=== PATIENT | female | born 1995 | race African-American/Black ===

== ENCOUNTER 2016-12-11 00:29 | Emergency (ER) | payer OTHER ==
[~2016-12-11] VITALS: Ht 170.2 cm; Wt 75.0 kg
[2016-12-11 00:37] VITALS: TEMP 37.2; Ht 170.2 cm; Wt 75.0 kg
--- NOTE | 2016-12-11 01:12 | DIAGNOSTIC IMAGING REPORT ---
LEFT ANKLE 3 VIEWS CLINICAL HISTORY: Left ankle injury. FINDINGS: 3 views of the left ankle are obtained. No prior studies are available for comparison at the time of dictation. The skeletal structures are well mineralized. There is a mildly distracted spiral fracture of the distal fibula. No additional fracture is seen. There is widening of the medial joint space which measures 5 mm. There is a joint effusion and significant soft tissue edema is noted around the ankle. IMPRESSION: 1. There is a minimally distracted spiral fracture through the distal fibula with associated joint effusion and soft tissue swelling. 2. No additional fracture is seen. There is widening of the medial joint space. Electronically signed by: Sean Nur M.D. 12/11/2016 1:11 AM Dictated Date/Time: 12/11/2016 1:09 AM
[2016-12-11] MEDS ORDERED: HYDR-5688 PO (01:28)
[2016-12-11] MEDS ORDERED: NORCO 5/325MG HOME PACK PO ONE (01:30)
[2016-12-11 01:52] VITALS: BP 128/80; PULSE 79; O2SAT 97
--- NOTE | 2016-12-11 06:55 | EMERGENCY ROOM VISIT NOTE ---
ED Visit Note First contact with patient: 00:54 CHIEF COMPLAINT: Ankle pain HISTORY OF PRESENT ILLNESS: This 21-year-old female patient presents to the emergency department after sustaining an injury to the left ankle and foot with a twisting, inversion motion after slipping on ice about 1 hour ago. The patient complains of pain along the outside of the ankle. The patient is without pain of the foot. The patient rates the pain as dull and 7/10. The patient is not able to bear weight on the foot. Constant pain, worse with movement, weight bearing, and the dependent position. No knee pain, the patient is able to move their toes. No numbness or weakness of the foot, no laceration. The patient has not had a previous fracture to this ankle. The patient has taken nothing for the pain. The patient denies any other injury. REVIEW OF SYSTEMS: A 6 system review of systems was completed with positives and pertinent negatives listed in the HPI. ALLERGIES: No known allergies MEDICATIONS: No chronic medications PMH: Otherwise healthy SOCIAL HISTORY: Student who lives locally PHYSICAL EXAM: Vital Signs: Reviewed Nurse's notes, vital signs stable. GENERAL : Female, no acute distress, but appears in pain, well-developed, well- nourished. MENTAL STATUS: Alert, oriented to person place and time, and cooperative. MUSCULOSKELETAL: The left ankle is swollen and tender over the lateral malleolus, but the skin is intact and there is no ligamentous instability. There is no fifth metatarsal tenderness. There is no tenderness over the rest of the foot. There is no calf or tibia/fibular tenderness. There is no visual deformity. The foot and toes are warm and well-perfused. Dorsalis pedis pulse 2+. Sensation to pain and light touch is intact. Capillary refill less than 2 seconds. LEFT ANKLE 3 VIEWS CLINICAL HISTORY: Left ankle injury. FINDINGS: 3 views of the left ankle are obtained. No prior studies are available for comparison at the time of dictation. The skeletal structures are well mineralized. There is a mildly distracted spiral fracture of the distal fibula. No additional fracture is seen. There is widening of the medial joint space which measures 5 mm. There is a joint effusion and significant soft tissue edema is noted around the ankle. IMPRESSION: 1. There is a minimally distracted spiral fracture through the distal fibula with associated joint effusion and soft tissue swelling. 2. No additional fracture is seen. There is widening of the medial joint space. EMERGENCY DEPARTMENT COURSE: I examined the patient. She appears to have suffered injury to her left ankle. X-ray was performed and shows a minimally distracted spiral fracture through the distal fibula. The patient was placed in an Ortho-Glass splint and provided crutches. She will need to follow with orthopedics. Evidently she is going back home to [place], and was given copies of her films. The patient will also be given a course of pain medication. She was pleased with plan of care and voiced understanding. Current/Historical Medications Scheduled PRN Hydrocodone/Acetaminophen 5MG/325MG (Biloxi 5MG/325MG), 1-2 TABLET PO Q6 PRN for Pain Allergies Coded Allergies: No Known Allergies (Unverified , 12/11/16) Vital Signs Date Time Temp Pulse Resp B/P Pulse Ox O2 Delivery O2 Flow Rate FiO2 12/11/16 01:52 79 18 128/80 97 12/11/16 00:37 37.2 88 18 139/84 98 Room Air Departure Information Impression Primary Impression: Fracture of distal end of left fibula Dispostion Home / Self-Care Condition GOOD Prescriptions Hydrocodone/Acetaminophen 5MG/325MG (Biloxi 5MG/325MG) Tab 1-2 TABLET PO Q6 Y for Pain, #24 TAB For Initial Treatment Prov: Wily Bhat PA-C 12/11/16 Referrals No Doctor, Assigned (PCP) Troy Palomares, DO Forms HOME CARE DOCUMENTATION FORM, IMPORTANT VISIT INFORMATION Patient Instructions My [facility] Additional Instructions You were seen and evaluated today on an emergency basis only. This is not a substitute for, or an effort to provide, complete comprehensive medical care. It is not possible to recognize and treat all injuries or illnesses in a single emergency department visit. For this reason it is recommended that you followup with Orthopedics, Dr. Palomares 's office, on Tuesday by telephone to arrange a follow-up visit next week. Let them know you were seen in the emergency department to help facilitate care. For baseline pain relief you may alternate ibuprofen and acetaminophen every 4 hours for pain control. Take 600 mg ibuprofen (Advil) and then 4 hours later take 1000 mg acetaminophen (Tylenol). Do not take more than 3000 mg acetaminophen in a single day. Bilox[place] (hydrocodone/acetaminophen) 5/325 mg ONE or TWO pills every 6 hours as needed for worsening breakthrough pain. Do not drink or drive on [place]. This medication will likely make you tired. Do not take [place] and Tylenol at the same time as both contain acetaminophen. Bil[place]i may cause constipation. You may wish to take an [id number] stool softener like Colace if this occurs. Do not get your splint wet. Use your crutches at all times until otherwise instructed by orthopedics. You are welcome to return to the emergency department anytime with new, worsening, or concerning symptoms.
== END 2016-12-11 01:53 | disposition home or self-care (01) ==
LOC: C.EDB 00:31
DX: S82.442A Displaced spiral fracture of shaft of left fibula, initial encounter for closed fracture (principal); W00.0XXA Fall on same level due to ice and snow, initial encounter